=== PATIENT | male | born 1995 | race African-American/Black ===

== ENCOUNTER 2024-05-24 08:37 | Emergency (ER) | payer MEDICAID ==
[~2024-05-24] VITALS: Ht 170.2 cm; Wt 55.0 kg
[2024-05-24 08:46] VITALS: O2SAT 99
[2024-05-24] MEDS: KETOROLAC 30MG/ML VIAL IV STA (09:04)
[2024-05-24] MEDS ORDERED: ONDANSETRON HCL 4MG/2ML INJ IV STA (09:04)
[2024-05-24 09:18] LABS: PROTHROMBIN TIME 11.1 sec (9.6-11.0)
[2024-05-24 09:20] LABS: CHLORIDE 104 mEq/L (98-107); POTASSIUM 3.5 mEq/L (3.5-5.1); SODIUM 135 mEq/L (136-145)
[2024-05-24 09:28] LABS: BASOPHILS % 0.8 % (0.0-2.0); EOSINOPHILS % 1.4 % (0.0-5.0); HEMOGLOBIN. 12.6 g/dL (14.0-18.0); MEAN CORPUSCULAR HEMOGLOBIN 30.3 pg (28.0-32.0); MEAN CORPUSCULAR HGB CONC 33.2 g/dL (31.0-37.0); MEAN CORPUSCULAR VOLUME 91.3 fL (80.0-94.0); MEAN PLATELET VOLUME 8.4 fl (7.4-10.4); MONOCYTES % 7.8 % (2.0-8.0); PLATELET 270 x1000/uL (130-400); RED BLOOD CELL COUNT 4.16 mill/uL (4.7-6.1); RED CELL DISTRIBUTION WIDTH 14.2 % (11.6-14.6); WHITE BLOOD COUNT 5.8 x1000/uL (4.5-11.0)
[2024-05-24] MEDS: DOXYCYCLINE HYCLATE 100MG CAPSULE PO ONE (10:42)
[2024-05-24] MEDS: CEFTRIAXONE SODIUM 1G VIAL IM ONE (10:42)
[2024-05-24 10:54] VITALS: TEMP 36.66960; O2SAT 100
[2024-05-24 10:58] VITALS: BP 119/70; PULSE 69; RESP 15; TEMP 98
[2024-05-24] MEDS ORDERED: DIATR MEGLU/DIATRIZOATE SOLN 30ML ONE (10:58)
[2024-05-24 11:54] LABS: CARBON DIOXIDE 29 mEq/L (21-32)
[2024-05-24 11:55] LABS: CALCIUM 9.2 mg/dL (8.7-10.4)
[2024-05-24 11:59] LABS: CREATININE 1.1 mg/dL (0.6-1.3); GLUCOSE 92 mg/dL (70-105)
[2024-05-24 12:00] LABS: UREA NITROGEN BLOOD 9 mg/dL (9-23)
[2024-05-24 12:01] LABS: ALANINE AMINOTRANSFERASE 7 IU/L (10-49); ALBUMIN 4.6 g/dL (3.2-4.8); ASPARTATE AMINOTRANSFERASE 8 IU/L (<34)
[2024-05-24 12:02] LABS: BILIRUBIN DIRECT 0.2 mg/dL (<=3.0); BILIRUBIN TOTAL 0.4 mg/dL (0.1-1.0); PROTEIN TOTAL 8.7 g/dL (6.0-8.3)
[2024-05-26 19:09] LABS: CHLAMYDIA TRACHOMATIS NAA Negative (Negative); NEISSERIA GONORRHOEAE NAA Negative (Negative)
== END 2024-05-24 12:02 | disposition left against medical advice (07) ==
LOC: ER 08:37 → CANBEDREQ 12:23
DX: K50.90 Crohn's disease, unspecified, without complications (principal); Z90.49 Acquired absence of other specified parts of digestive tract; Z11.3 Encounter for screening for infections with a predominantly sexual mode of transmission
CPT/HCPCS: 87491; 87591; 80076; 80048; 83690; 85025; 85610; 36415; 74176; 96372; 96374; 99285; J0696; J1885; J2405; Q9963; Z7610 ×2